=== PATIENT | male | born 1960 | race Caucasian/White ===

== ENCOUNTER 2018-11-05 05:12 | Inpatient (IN) | payer OTHER ==
--- NOTE | 2018-10-30 14:45 | NUR ---
PT HAS ECZEMA ON HIS R KNEE. NO OPEN SORES, JUST A VERY MILD HEALED RASH. PT SAYS DR MCKEON LOOKED AT IT. PT INSTRUCTED TO CALL DR Fuller FOR ANY INCREASED REDNESS OR SORES.
[2018-10-30 15:06] LABS: BASOPHILS # (AUTO) 0.1 X10'3 (0-0.2); BASOPHILS % (AUTO) 0.8 % (0-1); EOSINOPHILS # (AUTO) 0.2 X10'3 (0-0.9); EOSINOPHILS % (AUTO) 3.2 % (0-6); LYMPHOCYTES % (AUTO) 29.1 % (21-51); MEAN CORPUSCULAR HEMOGLOBIN 28.5 PG (27.0-31.0); MEAN CORPUSCULAR VOLUME 86.2 FL (78-98); MEAN PLATELET VOLUME 8.4 FL (7.4-10.4); MONOCYTES # (AUTO) 0.7 X10'3 (0-0.9); MONOCYTES % (AUTO) 10.9 % (2-12); NEUTROPHILS # (AUTO) 3.8 X10'3 (1.8-7.7); PRE OP HEMATOCRIT 41.8 % (42.0-52.0); PRE OP HEMOGLOBIN 13.8 g/dL (14.0-17.9); PRE OP PLATELET COUNT 246 X10'3 (140-440); RED BLOOD COUNT 4.85 X10'6 (4.70-6.10); RED CELL DISTRIBUTION WIDTH 13.6 % (11.5-14.5)
[2018-10-30 15:18] LABS: ALBUMIN 4.1 G/DL (3.4-5.0); ALBUMIN/GLOBULIN RATIO 1.5 (1.1-1.5); ALKALINE PHOSPHATASE 64 IU/L (46-116); BLOOD UREA NITROGEN 19 MG/DL (7-18); BUN/CREATININE RATIO 16.2 (5.4-32.0); CALCIUM 8.4 MG/DL (8.5-10.1); CHLORIDE 111 MMOL/L (99-107); CREATININE 1.17 MG/DL (0.60-1.10); PRE OP ALT 38 U/L (30-65); PRE OP ANION GAP 10 (8-16); PRE OP AST 15 U/L (10-37); PRE OP BILIRUB, TOTAL 0.4 MG/DL (0.0-1.0); PRE OP GLUCOSE 95 MG/DL (70-104); PRE OP POTASSIUM 4.1 MMOL/L (3.4-5.1); PRE OP SODIUM 145 MMOL/L (135-145); TOTAL CARBON DIOXIDE 23.6 MMOL/L (24-32); TOTAL PROTEIN 6.8 G/DL (6.4-8.2); eGFR 64 ML/MIN
[2018-10-30 15:25] LABS: PRE OP PROTIME 10.4 SECONDS (9.0-12.0)
[~2018-11-05] VITALS: Ht 180.3 cm; Wt 99.1 kg
[2018-11-05] VITALS (19 sets, daily range): BP systolic 99–131; BP diastolic 59–96
[~2018-11-05 05:12] MED LIST: AMLO-101 PO; ATOR10TA70 PO; CETI-102 PO; CHOL10002 PO; PANT-47 PO; TOPI50TA24 PO; TRAM50TA2 PO; TRAZ150T78 PO; UBID100C16 PO; [UNRECOGNIZED DRUG - OTHER] PO; ringers solution, lacted 1,000 ML IV SCH
[2018-11-05] MEDS ORDERED: cefazolin/dext.iso 2gm/50ml 50 ML IV ONE (05:30)
[2018-11-05] MEDS ORDERED: tranexamic acid inj. 980 MG in normal saline 100ml IV soln 100 ML IV ONE ×4 (05:30)
[2018-11-05] MEDS ORDERED: vancomycin inj 1,500 MG in normal saline 300ml IV soln IV ONE (05:30)
[2018-11-05] MEDS ORDERED: famotidine 20mg tablet PO ONE (05:30)
[2018-11-05] MEDS ORDERED: LIDOcaine 1% (10mg/ml) 2ml vial ONE (06:30)
[2018-11-05] MEDS ORDERED: ketorolac trometh. 30mg/ml inj. ONE (06:46)
[2018-11-05] MEDS ORDERED: ROPIVAcaine 0.5% (5mg/ml) 30ml vial ONE ×3 (06:47→07:30)
[2018-11-05] MEDS ORDERED: MIDAZolam 1mg/ml 10ml vial ONE (07:17)
[2018-11-05] MEDS ORDERED: fentaNYL/PF 50MCG/1 ML 2ML syringe ONE (07:18)
[2018-11-05] MEDS ORDERED: dexamethasone sod phosphate 4mg/ml inj. ONE (07:30)
[2018-11-05] MEDS ORDERED: morphine 4 MG/ML inj SYRINge IV PRN ×2 (07:55)
[2018-11-05] MEDS ORDERED: ringers solution, lacted 1,000 ML IV SCH (07:55)
[2018-11-05] MEDS ORDERED: ondansetron/PF 4mg/2ml inj IV PRN ×2 (07:55→10:00)
[2018-11-05] MEDS ORDERED: proCHLORperazine 10 MG/2 ml inj IV PRN (07:55)
[2018-11-05] MEDS ORDERED: meperidine/PF 25mg/ml syringe IV PRN ×3 (07:55)
[2018-11-05] MEDS ORDERED: acetaminophen 325mg tablet PO PRN (10:00)
[2018-11-05] MEDS ORDERED: HYDROmorphone inj. 0.5 MG/0.5 ML DISP.SYRIN IV PRN (10:00)
[2018-11-05] MEDS ORDERED: magnesium hydroxide 30ml (MOM) UD suspension PO PRN (10:00)
[2018-11-05] MEDS ORDERED: oxyCODONE IR 5mg (immed. release) tablet PO PRN (10:00)
[2018-11-05] MEDS ORDERED: diphenhydrAMINE 25mg capsule PO PRN ×2 (10:00)
[2018-11-05] MEDS ORDERED: bisacodyl 10mg suppository rectal RC PRN (10:00)
[2018-11-05] MEDS ORDERED: traMADol 50MG tablet PO PRN (10:00)
--- NOTE | 2018-11-05 10:08 | NUR ---
Received from OR via BED, accompanied by Anesthesiologist DR ESTEBAN and report given by Anesthesiologist. PT AWAKE, DENIES PAIN, HAS LIGHT SENSATION IN BILAT LE'S, STATES CAN FEEL PRESSURE, RIGHT KNEE W/DRSG, LEG WRAP, ICE PACK, CONCEPCION DRAIN, ACB CATHETER CDI, HONG CATHETER TO GRAVITY DRAINAGE W/YELLOW DRAINAGE. Addendum: 11/05/18 at 1041 by Deb Wallace RN Amended: Links added.
[2018-11-05] MEDS ORDERED: ROPIVAcaine 0.2%/PF PAIN PUMP 550 ML IJ SCH (10:09)
--- NOTE | 2018-11-05 11:28 | NUR ---
Report called to receiving nurse. Transferred via BED, 1 LARGE DUFFLE BAG SENT W/PT TO ROOM 4024B, RECEIVING RN AT BEDSIDE TO RECEIVE PT, BLL, CALL LIGHT GIVEN, SIDE RAILS UP X2, AT BEDSIDE. Special Issues communicated to receiving nurse. YES. Addendum: 11/05/18 at 1143 by Deb Wallace RN Amended: Links added.
[2018-11-05] MEDS ORDERED: tranexamic acid inj. 1,000 MG in normal saline 100ml IV soln 100 ML IV ONE (13:15)
[2018-11-05] MEDS: oxyCODONE IR 5mg (immed. release) tablet PO PRN ×2 (13:33→21:21)
[2018-11-05] MEDS: potassium cl 20mEq in 1/2 NS 1,000 ML IV SCH ×2 (13:34→17:40)
[2018-11-05] MEDS: acetaminophen 325mg tablet PO SCH ×2 (13:34→21:23)
[2018-11-05] MEDS: ceFAZolin 1GM/D5W- ADD-VANTAGE 50 ML IV SCH ×2 (15:36→23:46)
[2018-11-05] MEDS: HYDROmorphone 1 mg/ml syringe IV PRN (16:45)
[2018-11-05] MEDS ORDERED: topiramate 25mg tablet PO SCH (20:00)
[2018-11-05] MEDS ORDERED: vancomycin/NS 1 GM ADD-VANTAGE 250 ML IV SCH (20:00)
[2018-11-05] MEDS: atorvastatin 10mg tablet PO SCH (21:21)
[2018-11-05] MEDS: pantoprazole 40mg Tablet.DR PO SCH (21:21)
[2018-11-05] MEDS: sennosides 8.6mg tablet PO SCH (21:22)
[2018-11-05] MEDS: cetirizine 10mg tablet PO SCH (21:24)
[2018-11-05] MEDS: traZODone 150mg tablet PO SCH (21:24)
--- NOTE | 2018-11-05 22:48 | NUR ---
PT ONLY TOOK 8.6MG OF SENNA. AND 25MG OF TOPAMAX WHICH IS REGULAR HOME DOSE INSTEAD OF 50MG ORDERED.
[2018-11-06] MEDS: potassium cl 20mEq in 1/2 NS 1,000 ML IV SCH ×3 (02:00→17:45)
[2018-11-06] MEDS: acetaminophen 325mg tablet PO SCH ×4 (02:00→20:28)
[2018-11-06 02:05] VITALS: BP 116/68
[2018-11-06] MEDS: oxyCODONE IR 5mg (immed. release) tablet PO PRN ×4 (04:40→23:50)
[2018-11-06 05:15] LABS: BASOPHILS % (AUTO) 0.2 % (0-1); EOSINOPHILS % (AUTO) 0.3 % (0-6); HEMATOCRIT 34.8 % (42.0-52.0); HEMOGLOBIN 11.7 g/dl (14.0-17.9); LYMPHOCYTES # (AUTO) 1.4 X10'3 (1.1-4.8); LYMPHOCYTES % (AUTO) 9.7 % (21-51); MEAN CORPUSCULAR HEMOGLOBIN 28.7 PG (27.0-31.0); MEAN CORPUSCULAR HGB CONC 33.5 g/dL (33.0-36.5); MEAN CORPUSCULAR VOLUME 85.9 FL (78-98); MEAN PLATELET VOLUME 8.7 FL (7.4-10.4); MONOCYTES # (AUTO) 1.4 X10'3 (0-0.9); MONOCYTES % (AUTO) 9.4 % (2-12); NEUTROPHILS # (AUTO) 11.9 X10'3 (1.8-7.7); NEUTROPHILS % (AUTO) 80.4 % (42-75); PLATELET COUNT 224 X10'3 (140-440); RED BLOOD COUNT 4.06 X10'6 (4.70-6.10); RED CELL DISTRIBUTION WIDTH 13.7 % (11.5-14.5); WHITE BLOOD COUNT 14.8 X10'3 (4.5-11.0)
[2018-11-06 05:37] LABS: ANION GAP 11 (8-16); CHLORIDE 111 MMOL/L (99-107); POTASSIUM 4.2 MMOL/L (3.5-5.1); SODIUM 140 MMOL/L (135-145); TOTAL CARBON DIOXIDE 18.5 MMOL/L (24-32)
[2018-11-06 06:00] VITALS: BP 115/75
--- NOTE | 2018-11-06 06:21 | NUR ---
Problems reprioritized. Patient report given, questions answered & plan of care reviewed with NEHEMIAH MONTELONGO.
--- NOTE | 2018-11-06 07:02 | NUR ---
Report received from NEHEMIAH Young
[2018-11-06] MEDS: amLODIPine 5mg tablet PO SCH (09:34)
[2018-11-06] MEDS: topiramate 25mg tablet PO SCH ×2 (09:35→20:29)
[2018-11-06] MEDS: multivitamins, therapeutics tablet PO SCH (09:35)
[2018-11-06] MEDS: lisinopril 20mg tablet PO SCH (09:37)
[2018-11-06] MEDS: aspirin 325mg tablet PO SCH (09:38)
[2018-11-06] MEDS: vitamin D (cholecalciferol) 1,000 unit tablet PO SCH (09:47)
[2018-11-06 11:40] VITALS: BP 153/86
--- NOTE | 2018-11-06 13:57 | NUR ---
Joint replacement consult: Pt seen by MITESH for written/verbal high protein ed. RD reviewed high protein needs for wound healing, immune strength, high protein foods, and protein supplementation options. RD contact information provided in case of further questions. Pt agrees to cottage cheese w/ peaches at breakfasts; dietary notified. Addendum: 11/06/18 at [address] Amended: Links added.
[2018-11-06 18:00] VITALS: BP 127/75
--- NOTE | 2018-11-06 18:21 | NUR ---
Patient in room ORTHO 4024. I have received report from kath Aggarwal and had the opportunity to ask questions and assume patient care.
[2018-11-06] MEDS: HYDROmorphone 1 mg/ml syringe IV PRN (20:25)
[2018-11-06] MEDS: atorvastatin 10mg tablet PO SCH (20:28)
[2018-11-06] MEDS: celeCOXIB 100mg capsule PO SCH (20:28)
[2018-11-06] MEDS: traZODone 150mg tablet PO SCH (20:29)
[2018-11-06] MEDS: cetirizine 10mg tablet PO SCH (20:29)
[2018-11-06] MEDS: pantoprazole 40mg Tablet.DR PO SCH (20:29)
[2018-11-06] MEDS: sennosides 8.6mg tablet PO SCH (20:36)
[2018-11-06 21:56] VITALS: BP 114/65
[2018-11-07] MEDS: potassium cl 20mEq in 1/2 NS 1,000 ML IV SCH (01:19)
[2018-11-07] MEDS: acetaminophen 325mg tablet PO SCH ×2 (02:20→09:17)
[2018-11-07] MEDS: oxyCODONE IR 5mg (immed. release) tablet PO PRN ×2 (05:17→09:19)
[2018-11-07 06:00] VITALS: BP 111/59
[2018-11-07 06:01] LABS: BASOPHILS % (AUTO) 0.4 % (0-1); EOSINOPHILS % (AUTO) 0.4 % (0-6); HEMATOCRIT 33.1 % (42.0-52.0); HEMOGLOBIN 11.3 g/dl (14.0-17.9); LYMPHOCYTES # (AUTO) 1.3 X10'3 (1.1-4.8); LYMPHOCYTES % (AUTO) 14.3 % (21-51); MEAN CORPUSCULAR HEMOGLOBIN 29.2 PG (27.0-31.0); MEAN CORPUSCULAR HGB CONC 34.1 g/dL (33.0-36.5); MEAN CORPUSCULAR VOLUME 85.7 FL (78-98); MEAN PLATELET VOLUME 8.9 FL (7.4-10.4); MONOCYTES # (AUTO) 1.1 X10'3 (0-0.9); MONOCYTES % (AUTO) 12.4 % (2-12); NEUTROPHILS # (AUTO) 6.4 X10'3 (1.8-7.7); NEUTROPHILS % (AUTO) 72.5 % (42-75); PLATELET COUNT 195 X10'3 (140-440); RED BLOOD COUNT 3.87 X10'6 (4.70-6.10); RED CELL DISTRIBUTION WIDTH 14.1 % (11.5-14.5); WHITE BLOOD COUNT 8.8 X10'3 (4.5-11.0)
--- NOTE | 2018-11-07 06:18 | NUR ---
Problems reprioritized. Patient report given, questions answered & plan of care reviewed with NEHEMIAH MI AND NEHEMIAH YOUNG.
--- NOTE | 2018-11-07 06:57 | NUR ---
Patient in room ORTHO 4024. I have received report from Hannah CERNA and had the opportunity to ask questions and assume patient care.
[2018-11-07] MEDS: lisinopril 20mg tablet PO SCH (08:00)
[2018-11-07] MEDS ORDERED: ASPI-1 PO (08:23)
[2018-11-07] MEDS: vitamin D (cholecalciferol) 1,000 unit tablet PO SCH (09:13)
[2018-11-07] MEDS: aspirin 325mg tablet PO SCH (09:13)
[2018-11-07] MEDS: multivitamins, therapeutics tablet PO SCH (09:16)
[2018-11-07] MEDS: celeCOXIB 100mg capsule PO SCH (09:16)
[2018-11-07] MEDS: topiramate 25mg tablet PO SCH (09:17)
[2018-11-07] MEDS: amLODIPine 5mg tablet PO SCH (09:18)
[2018-11-07 10:00] VITALS: BP 160/72
[2018-11-07] MEDS ORDERED: acetaminophen 325mg tablet PO PRN (10:00)
[2018-11-07] MEDS ORDERED: ROPIVAcaine 0.2%/PF PAIN PUMP 550 ML IJ SCH (10:00)
--- NOTE | 2018-11-07 13:54 | NUR ---
Patient left with in personnel vehicle. Cpap with patient and all personal items with .
--- NOTE | 2018-11-07 16:26 | NUR ---
I AGREE WITH MY PRECEPTEE HANNAH CERNA'S CHARTING.
== END 2018-11-07 13:45 | disposition home health service (06) | DRG 470 ==
LOC: PAS IN 05:12 → EDSTATUS 07:30 → ORTHO 4S 11:30
PROVIDERS: ADMIT Orthopaedic Surgery; ATTEND Orthopaedic Surgery
PROC: 3E0T3BZ Introduction of Anesthetic Agent into Peripheral Nerves and Plexi, Percutaneous Approach (ICD-10-PCS; 2018-11-05)
PROC: 8E0Y0CZ Robotic Assisted Procedure of Lower Extremity, Open Approach (ICD-10-PCS; 2018-11-05)
PROC: 8E0YXBZ Computer Assisted Procedure of Lower Extremity (ICD-10-PCS; 2018-11-05)
PROC: 0SRC0J9 Replacement of Right Knee Joint with Synthetic Substitute, Cemented, Open Approach (ICD-10-PCS; principal; 2018-11-05 07:15)
DX: M17.11 Unilateral primary osteoarthritis, right knee (principal); D62 Acute posthemorrhagic anemia; E78.5 Hyperlipidemia, unspecified; I10 Essential (primary) hypertension; K21.9 Gastro-esophageal reflux disease without esophagitis; G47.30 Sleep apnea, unspecified; Z88.2 Allergy status to sulfonamides; Z88.6 Allergy status to analgesic agent; Z88.8 Allergy status to other drugs, medicaments and biological substances; Z90.49 Acquired absence of other specified parts of digestive tract
CPT/HCPCS: 36415; 80051; 80053; 82948; 85025; 85610; 85730; 87081; 97110; 97116; 97161; 97530; A4215; A6454; A7000; C1713; C1758; C1776; G0378; J0690; J1100; J1170; J1885; J2001; J2250; J2795; J3010; J3370; J3480; J7120

== ENCOUNTER 2021-08-25 08:55 | Outpatient (CLI) | payer OTHER ==
[~2021-08-25] VITALS: Ht 180.3 cm; Wt 104.3 kg
[~2021-08-25 08:55] MED LIST changes: +ASPI-1 PO; -CETI-102 PO; +CETI-90 PO; +CIPR250T4 PO; +DICL100G30 TOP; +MAGN250T11 PO; +MULT-1074 PO; +TRIA15CR61 TP; -[UNRECOGNIZED DRUG - OTHER] PO; -ringers solution, lacted 1,000 ML IV SCH
[2021-08-25] MEDS ORDERED: albuterol 2.5 MG/3 ML nebule NEB PRN (09:25)
== END 2021-08-25 23:59 | disposition home or self-care (01) ==
LOC: RT 08:55
PROVIDERS: ATTEND Chiropractor
DX: R06.02 Shortness of breath (principal); M47.814 Spondylosis without myelopathy or radiculopathy, thoracic region
CPT/HCPCS: 71046; 94060; 94760